=== PATIENT | male | born 2000 | race Asian ===

== ENCOUNTER 2019-06-02 12:10 | Emergency (ER) | payer OTHER ==
[~2019-06-02] VITALS: Ht 185.4 cm; Wt 86.2 kg
[2019-06-02 12:21] VITALS: TEMP 98.1
[2019-06-02 14:46] VITALS: BP 118/66
== END 2019-06-02 14:46 | disposition home or self-care (01) ==
LOC: ED 12:10
DX: J02.9 Acute pharyngitis, unspecified (principal)
CPT/HCPCS: 87502; 87651; 99283

== ENCOUNTER 2020-10-04 11:16 | Emergency (ER) | payer OTHER ==
[~2020-10-04] VITALS: Ht 185.4 cm; Wt 90.7 kg
[2020-10-04 11:31] VITALS: BP 143/84; TEMP 98.6
== END 2020-10-04 13:19 | disposition home or self-care (01) ==
LOC: ED 11:16
DX: K64.9 Unspecified hemorrhoids (principal)
CPT/HCPCS: 99283